=== PATIENT | male | born 1945 | race Caucasian/White ===

== ENCOUNTER 2018-02-10 18:43 | Emergency (ER) | payer MEDICARE ==
[~2018-02-10] VITALS: Ht 175.3 cm; Wt 83.9 kg
[~2018-02-10 18:43] MED LIST: LISINOPRIL40 MG PO
[2018-02-10] MEDS ORDERED: POTASSIUM GLUC500 MG PO (19:03)
== END 2018-02-10 20:40 | disposition home or self-care (01) ==
LOC: ED 18:43
DX: R53.83 Other fatigue (principal); I10 Essential (primary) hypertension; Z88.5 Allergy status to narcotic agent; Z79.899 Other long term (current) drug therapy
CPT/HCPCS: 80053; 81001; 85025; 99283

== ENCOUNTER 2019-11-02 15:20 | Emergency (ER) | payer MEDICARE ==
[~2019-11-02] VITALS: Ht 175.3 cm; Wt 83.9 kg
[~2019-11-02 15:20] MED LIST changes: +POTASSIUM GLUC500 MG PO
[2019-11-02] MEDS ORDERED: METOPROLOL SUCC50 MG PO (15:28)
[2019-11-02] MEDS ORDERED: HYDROCHLOROTHIA25 MG PO (15:29)
== END 2019-11-02 16:25 | disposition home or self-care (01) ==
LOC: ED 15:20
DX: K64.4 Residual hemorrhoidal skin tags (principal); I10 Essential (primary) hypertension; Z88.5 Allergy status to narcotic agent; Z79.899 Other long term (current) drug therapy
CPT/HCPCS: 99283

== ENCOUNTER 2020-01-07 09:40 | Emergency (ER) | payer MEDICARE ==
[~2020-01-07] VITALS: Ht 175.3 cm; Wt 83.9 kg
[~2020-01-07 09:40] MED LIST changes: +HYDROCHLOROTHIA25 MG PO; +LISINOPRIL20 MG PO; +METOPROLOL SUCC50 MG PO; +NORCO 5-325 TA1 EACH PO; +VITAMIN D325 MC1 PO
--- OUTSIDE RECORDS SUMMARY | 2020-01-07 09:44 | XMS ---
PreManage Notification: CHAVA MENARD [employer] Attendant Events No recent Security Events currently on file [facility] There are no care providers on record at this time. Tonya has no Care Guidelines for this patient. [place] VISIT COUNT (12 MO.) 2 NICOLE Wilson TOTAL 2 NOTE: Visits indicate total known visits. ED/UCC VISIT TRACKING (12 MO.) 01/07/2020 09:41 [facility] [place] TYPE: Emergency COMPLAINT: - POST OP REACTION 11/02/2019 15:21 [facility] [place] TYPE: Emergency COMPLAINT: - RECTAL BLEEDING DIAGNOSES: - Other care home (current) drug therapy - Essential (primary) hypertension - Hemorrhage of anus and rectum - Residual hemorrhoidal skin tags - Allergy status to narcotic agent status INPATIENT VISIT TRACKING (12 MO.) No inpatient visits to display in this time frame [email or web address]
--- NOTE | 2020-01-07 11:37 | EKG ---
[facility] [address] [facility] [place] [address] Signed Normal sinus rhythm Left axis deviation Right bundle branch block T wave abnormality, consider lateral ischemia Abnormal ECG When compared with ECG of 12-DEC-2019 15:32, No significant change was found Confirmed by BEN JACOB MD ([id number]) on 01/07/2020 11:37:23 AM Electronically Signed By: BEN JACOB MD 01/07/20 1137 PATIENT NAME: SAILAJACHAVA ELKE Electrocardiogram DATE OF : 41 PHYSICIAN: BEN JACOB MD REPORT #: [id number] REPORT IS CONFIDENTIAL AND NOT TO BE RELEASED WITHOUT AUTHORIZATION
[2020-01-07] MEDS ORDERED: MECLIZINE HCL25 MG PO (13:10)
[2020-01-07] MEDS ORDERED: GOLYTELY SOLU4000 ML PO (13:10)
== END 2020-01-07 13:33 | disposition home or self-care (01) ==
LOC: ED 09:40
DX: H81.10 Benign paroxysmal vertigo, unspecified ear (principal); K59.00 Constipation, unspecified; G89.18 Other acute postprocedural pain; I10 Essential (primary) hypertension; Z79.899 Other long term (current) drug therapy
CPT/HCPCS: 70450; 74177; 80053; 85025; 93005; 93010; 99284-25; J1170; J2405; Q9967

== ENCOUNTER 2020-07-06 11:48 | Emergency (ER) | payer MEDICARE ==
[~2020-07-06] VITALS: Ht 175.3 cm; Wt 83.9 kg
[~2020-07-06 11:48] MED LIST changes: +GOLYTELY SOLU4000 ML PO; +MECLIZINE HCL25 MG PO
== END 2020-07-06 14:18 | disposition home or self-care (01) ==
LOC: ED 11:48
DX: S09.90XA Unspecified injury of head, initial encounter (principal); S16.1XXA Strain of muscle, fascia and tendon at neck level, initial encounter; I10 Essential (primary) hypertension; Z88.5 Allergy status to narcotic agent; Z79.899 Other long term (current) drug therapy; W22.8XXA Striking against or struck by other objects, initial encounter
CPT/HCPCS: 70450; 72125; 99284-25

== ENCOUNTER 2023-09-03 11:39 | Emergency (ER) | payer OTHER, MEDICARE ==
[~2023-09-03] VITALS: Ht 175.3 cm; Wt 94.3 kg
[~2023-09-03 11:39] MED LIST changes: +HYDROCODON-ACE1 EA10 PO; +PAXLOVID 300-11 EACH PO
[2023-09-03] MEDS ORDERED: COZAAR50 MG PO (13:41)
[2023-09-03 14:03] LABS: BASOPHILS 0.4 % (0-2); EOSINOPHILS 4.4 % (0-6); HEMATOCRIT 42.1 % (35.0-50.0); HEMOGLOBIN 14.1 g/dL (12.0-18.0); MCH 32.9 (27-36); MCHC 33.5 g/dl (30-36); MCV 98.3 fl (81-99); MONOCYTES 9.2 % (0-12); PLATELET COUNT 224 K/uL (140-440); RBC 4.28 M/ul (4.3-5.7); RDW 14.5 (10.5-15.0)
[2023-09-03 14:18] LABS: ALBUMIN 3.8 g/dL (3.4-5.0); ALBUMIN/GLOBULIN RATIO 1.09 (1.1-2.4); ANION GAP 12.2 (7-21); BILIRUBIN, TOTAL 0.4 ng/dL (0.2-1.0); BUN/CREATININE RATIO 12.6 (6.0-28.6); CALCIUM 8.6 mg/dL (8.5-10.1); CREATININE, SERUM 1.19 mg/dL (0.70-1.30); POTASSIUM 4.2 mmol/L (3.5-5.1); PROTEIN, TOTAL 7.3 g/dL (6.4-8.2)
[2023-09-03 14:34] LABS: BILIRUBIN, URINE NEGATIVE (negative); BLOOD/HGB, URINE NEGATIVE (Negative); KETONE, URINE NEGATIVE (Negative); LEUK ESTERASE, URINE NEGATIVE (negative); NITRITE, URINE NEGATIVE (negative)
[2023-09-03 14:56] VITALS: BP 182/96
== END 2023-09-03 14:57 | disposition home or self-care (01) ==
LOC: ED 11:39
PROVIDERS: Emergency Medicine
DX: I10 Essential (primary) hypertension (principal); Z88.5 Allergy status to narcotic agent; Z79.899 Other long term (current) drug therapy
CPT/HCPCS: 36415; 80053; 81003; 85025; 99283

== ENCOUNTER 2025-07-14 11:41 | Emergency (ER) | payer OTHER, MEDICARE ==
[~2025-07-14] VITALS: Ht 175.3 cm; Wt 93.4 kg
[~2025-07-14 11:41] MED LIST changes: +COZAAR50 MG PO; +HYDROCHLOROTHIA50 MG PO
[2025-07-14] MEDS ORDERED: IBUPROFEN 600 MG TAB PO ONE (12:15)
[2025-07-14] MEDS ORDERED: ACETAMINOPHEN 500 MG TAB PO ONE (12:15)
[2025-07-14] MEDS ORDERED: CYCLOBENZAPRINE HCL 10 MG TAB PO ONE (12:15)
[2025-07-14] MEDS ORDERED: TRAMADOL HCL50 MG PO (13:43)
[2025-07-14 13:52] VITALS: BP 156/78
== END 2025-07-14 13:52 | disposition home or self-care (01) ==
LOC: ED 11:41
DX: M25.511 Pain in right shoulder (principal); I10 Essential (primary) hypertension; Z88.5 Allergy status to narcotic agent; Z79.899 Other long term (current) drug therapy
CPT/HCPCS: 73030; 99283; A9270